=== PATIENT | male | born 1940 | race Caucasian/White ===

== ENCOUNTER 2019-06-28 08:40 | Day surgery (SDC) | payer MEDICARE, MEDICAID ==
[~2019-06-28] VITALS: Ht 160 cm; Wt 60.9 kg
[~2019-06-28 08:40] MED LIST: MULT1CAP32 PO; SODIUM CHLORIDE 0.9% 1,000 ML IV ONE; SODIUM CHLORIDE 0.9% 1,000 ML ONE; TAMS-13 PO
[2019-06-28] MEDS ORDERED: PROPOFOL 1% 20 ML VIAL IVP ONE (08:41)
[2019-06-28] MEDS ORDERED: OXYGEN THERAPY IH SCH (20:00)
== END 2019-06-28 12:15 | disposition home or self-care (01) ==
LOC: SURGERY 08:40
PROVIDERS: ATTEND Specialist
DX: K62.5 Hemorrhage of anus and rectum (principal); K64.8 Other hemorrhoids; K21.9 Gastro-esophageal reflux disease without esophagitis; I10 Essential (primary) hypertension; D64.9 Anemia, unspecified; E78.5 Hyperlipidemia, unspecified; Z85.46 Personal history of malignant neoplasm of prostate; Z82.49 Family history of ischemic heart disease and other diseases of the circulatory system; Z80.0 Family history of malignant neoplasm of digestive organs; Z80.49 Family history of malignant neoplasm of other genital organs; Z83.3 Family history of diabetes mellitus; Z85.830 Personal history of malignant neoplasm of bone
CPT/HCPCS: 45378; J2704; J7030